=== PATIENT | female | born 1935 | race Caucasian/White ===

== ENCOUNTER → 2017-05-28 | Outpatient (CLI) | payer MEDICARE, OTHER ==
[~2017-05-28] MED LIST: ASPI81EC; ATOR10; CALGLU500; LORA1 PO; MECL25 PO; MULVITMINF; RXLORA1 PO
[2017-05-28 18:24] LABS: BASOPHILS ABSOLUTE AUTO 0.07 K/mm3 (0.00-0.23); BASOPHILS PERCENT AUTO 1 % (0-2); EOSINOPHILS PERCENT AUTO 5 % (0-6); Hematocrit 42.1 % (33.0-51.0); Hemoglobin 13.6 g/dL (11.5-16.0); IMMATURE GRAN ABSOLUTE AUTO 0.01 K/mm3 (0.00-0.10); IMMATURE GRAN PERCENT AUTO 0 % (0-1); LYMPHOCYTES ABSOLUTE AUTO 1.48 K/mm3 (0.84-5.20); LYMPHOCYTES PERCENT AUTO 22 % (21-46); MONOCYTES ABSOLUTE AUTO 0.69 K/mm3 (0.16-1.47); MONOCYTES PERCENT AUTO 10 % (4-13); Mean Corpuscular HGB 31.8 pg (26.0-34.0); Mean Corpuscular HGB Conc 32.3 g/dL (31.5-36.5); Mean Corpuscular Volume 98 fL (80-100); Mean Platelet Volume 11.9 fL (9.1-12.4); NEUTROPHILS ABSOLUTE AUTO 4.17 K/mm3 (1.96-9.15); NEUTROPHILS PERCENT AUTO 62 % (41-73); Platelet Count 214 K/mm3 (150-400); RDW Coefficient Variation 12.9 % (11.7-14.2); RDW Standard Deviation 46.4 fL (35.1-46.3); Red Blood Cell Count 4.28 M/mm3 (3.80-5.20); White Blood Cell Count 6.72 K/mm3 (4.00-11.30)
[2017-05-28 19:51] LABS: Alanine Aminotransfer (ALT/SGP 20 U/L (12-78); Albumin, Blood 3.3 g/dL (3.4-5.0); Albumin/Globulin Ratio 0.9 (0.8-1.8); Alk Phos 51 U/L (50-136); Anion Gap 8 mmol/L (6-16); Aspartate Aminotrans (AST/SGOT 18 U/L (12-37); Bilirubin, Total 0.5 mg/dL (0.1-1.0); Blood Urea Nitrogen 20 mg/dL (8-24); CHOL/HDL RATIO 2.3; CO2, Blood 25 mmol/L (21-32); Calcium, Blood 8.9 mg/dL (8.5-10.1); Chloride, Blood 108 mmol/L (98-108); Cholesterol 174 mg/dL (50-200); Globulin, Blood 3.7 g/dL (2.2-4.0); Glucose, Blood 84 mg/dL (70-99); HDL Cholesterol 75 mg/dL (>39); LDL/HDL RATIO 1.1; Low Density Lipoprotein Chol 82 mg/dL (0-110); Potassium, Blood 4.5 mmol/L (3.5-5.5); Sodium, Blood 141 mmol/L (136-145); Triglycerides 83 mg/dL (30-160); Very Low Density Lipoprot Chol 16 mg/dL (6-32)
[2017-05-28 19:59] LABS: Bun/Creatinine Ratio 22.6 (12.0-20.0); Creatinine, Blood 0.89 mg/dL (0.40-1.00); Glomerular Filtration Rate >60 (60-)
== END | disposition home or self-care (01) ==
LOC: LAB 18:04
PROVIDERS: Nurse Practitioner Adult Health
DX: E78.5 Hyperlipidemia, unspecified (principal)
CPT/HCPCS: 80053; 80061; 84439; 84443; 85025

== ENCOUNTER → 2018-03-16 | Outpatient (CLI) | payer MEDICARE, OTHER ==
[2018-03-16 18:04] LABS: Bilirubin, Urine Neg (Neg); Blood, Urine Neg (Neg); Glucose Qualitative, Urine Neg (Neg); Ketones, Urine Neg (Neg); Leukocyte Esterase, Urine 1+ (Neg); Nitrite, Urine Neg (Neg); Protein, Urine 3+ (Neg); Specific Gravity, Urine 1.015 (1.003-1.022); Urobilinogen, Urine NORM (Normal)
[2018-03-16 18:27] LABS: Appearance, Urine Clear (Clear); Color, Urine Yellow (P-Yellow)
[2018-03-16 18:28] LABS: Bacteria Not Seen /hpf; Red Blood Cells, Urine Not Seen /hpf (0-2); Renal Epithelial Rare /hpf (0-Rare); Squamous Epithelial Cells Rare /hpf (Few)
== END ==
LOC: LAB SHORT 17:36 → LAB 17:36
PROVIDERS: Nurse Practitioner Family
DX: R80.9 Proteinuria, unspecified (principal)
CPT/HCPCS: 81001

== ENCOUNTER 2018-05-25 11:57 | Inpatient (IN) | payer MEDICARE, OTHER ==
[~2018-05-25] VITALS: Ht 165.1 cm; Wt 54.4 kg
[2018-05-25 13:36] LABS: BASOPHILS ABSOLUTE AUTO 0.03 K/mm3 (0.00-0.23); BASOPHILS PERCENT AUTO 0 % (0-2); EOSINOPHILS PERCENT AUTO 0 % (0-6); Hematocrit 39.7 % (33.0-51.0); Hemoglobin 12.6 g/dL (11.5-16.0); IMMATURE GRAN ABSOLUTE AUTO 0.25 K/mm3 (0.00-0.10); IMMATURE GRAN PERCENT AUTO 2 % (0-1); LYMPHOCYTES ABSOLUTE AUTO 0.78 K/mm3 (0.84-5.20); LYMPHOCYTES PERCENT AUTO 5 % (21-46); MONOCYTES ABSOLUTE AUTO 1.05 K/mm3 (0.16-1.47); MONOCYTES PERCENT AUTO 7 % (4-13); Mean Corpuscular HGB 29.9 pg (26.0-34.0); Mean Corpuscular HGB Conc 31.7 g/dL (31.5-36.5); Mean Corpuscular Volume 94 fL (80-100); Mean Platelet Volume 10.7 fL (9.1-12.4); NEUTROPHILS ABSOLUTE AUTO 13.36 K/mm3 (1.96-9.15); NEUTROPHILS PERCENT AUTO 86 % (41-73); NRBC ABSOLUTE 0.02 K/mm3 (0.00-0.02); NRBC Auto 0.1 /100 WBC (0.0-0.2); Platelet Count 287 K/mm3 (150-400); RDW Coefficient Variation 13.5 % (11.7-14.2); RDW Standard Deviation 45.7 fL (35.1-46.3); Red Blood Cell Count 4.22 M/mm3 (3.80-5.20); White Blood Cell Count 15.47 K/mm3 (4.00-11.30)
[2018-05-25 13:52] LABS: Alanine Aminotransfer (ALT/SGP 65 U/L (12-78); Albumin, Blood 2.3 g/dL (3.4-5.0); Albumin/Globulin Ratio 0.5 (0.8-1.8); Alk Phos 58 U/L (50-136); Anion Gap 15 mmol/L (6-16); Aspartate Aminotrans (AST/SGOT 137 U/L (12-37); Bilirubin, Total 0.6 mg/dL (0.1-1.0); Blood Urea Nitrogen 39 mg/dL (8-24); Bun/Creatinine Ratio 46.3 (12.0-20.0); CO2, Blood 23 mmol/L (21-32); Calcium, Blood 9.2 mg/dL (8.5-10.1); Chloride, Blood 108 mmol/L (98-108); Creatinine, Blood 0.84 mg/dL (0.40-1.00); Globulin, Blood 4.7 g/dL (2.2-4.0); Glomerular Filtration Rate >60 (60-); Glucose, Blood 69 mg/dL (70-99); Potassium, Blood 4.1 mmol/L (3.5-5.5); Sodium, Blood 146 mmol/L (136-145)
[2018-05-25 13:59] LABS: Influenza A Negative (NEGATIVE); Influenza B Negative (NEGATIVE)
[2018-05-25 15:14] LABS: Creatine Kinase MB 31.5 ng/mL (0.0-3.6)
[2018-05-25 15:22] LABS: Creatine Kinase MB Index 2.9 (0.0-4.0)
[2018-05-25 16:13] LABS: Source, Urine Catheter
[2018-05-25 16:22] LABS: Bilirubin, Urine Neg (Neg); Blood, Urine 2+ (Neg); Glucose Qualitative, Urine Neg (Neg); Ketones, Urine 3+ (Neg); Leukocyte Esterase, Urine Neg (Neg); Nitrite, Urine Pos (Neg); Protein, Urine 2+ (Neg); Urobilinogen, Urine NORM (Normal)
[2018-05-25 16:36] LABS: Appearance, Urine Clear (Clear); Color, Urine Yellow (P-Yellow)
[2018-05-25 16:38] LABS: White Blood Cells, Urine 0-2 /hpf (0-5)
[2018-05-25 16:39] LABS: Bacteria Many /hpf; Squamous Epithelial Cells Not Seen /hpf (Few)
[2018-05-25 18:57] LABS: LDL/HDL RATIO 1.6
[2018-05-25 18:58] LABS: CHOL/HDL RATIO 3.2; Cholesterol 156 mg/dL (50-200); HDL Cholesterol 49 mg/dL (>39); Low Density Lipoprotein Chol 80 mg/dL (0-110); Triglycerides 134 mg/dL (30-160); Very Low Density Lipoprot Chol 26 mg/dL (6-32)
[2018-05-25] MEDS ORDERED: SIMV40 PO (21:04)
[2018-05-25] MEDS ORDERED: ELIQUIS5 MG PO (21:05)
[2018-05-26 04:09] LABS: BASOPHILS ABSOLUTE AUTO 0.01 K/mm3 (0.00-0.23); BASOPHILS PERCENT AUTO 0 % (0-2); EOSINOPHILS ABSOLUTE AUTO 0.01 K/mm3 (0.00-0.68); EOSINOPHILS PERCENT AUTO 0 % (0-6); Hematocrit 34.7 % (33.0-51.0); Hemoglobin 11.3 g/dL (11.5-16.0); IMMATURE GRAN PERCENT AUTO 2 % (0-1); LYMPHOCYTES ABSOLUTE AUTO 0.69 K/mm3 (0.84-5.20); LYMPHOCYTES PERCENT AUTO 5 % (21-46); MONOCYTES ABSOLUTE AUTO 1.07 K/mm3 (0.16-1.47); MONOCYTES PERCENT AUTO 8 % (4-13); Mean Corpuscular HGB 29.7 pg (26.0-34.0); Mean Corpuscular HGB Conc 32.6 g/dL (31.5-36.5); Mean Corpuscular Volume 91 fL (80-100); Mean Platelet Volume 10.8 fL (9.1-12.4); NEUTROPHILS ABSOLUTE AUTO 11.73 K/mm3 (1.96-9.15); NEUTROPHILS PERCENT AUTO 86 % (41-73); Platelet Count 221 K/mm3 (150-400); RDW Coefficient Variation 13.3 % (11.7-14.2); RDW Standard Deviation 44.2 fL (35.1-46.3); White Blood Cell Count 13.71 K/mm3 (4.00-11.30)
[2018-05-26 04:24] LABS: Bun/Creatinine Ratio 48.7 (12.0-20.0); Creatinine, Blood 0.95 mg/dL (0.40-1.00); Potassium, Blood 3.7 mmol/L (3.5-5.5)
--- NOTE | 2018-05-26 16:43 | NUR ---
SHIFT SUMMARY NEW ER ADMIT THIS SHIFT WITH UTI/R FOOT GANGRENE. PT IS ALERT AND ORIENTED AND PLEASANT. PT HAS HX OF DAILY ALCOHOL USE--CIWA PROTOCOL IN PLACE AND STABLE AT SCORE OF 3. PT RECEIVING IVF PER ORDERS AND ABX SCHEDULED. PT PLACED ON 3L VIA NC TO MAINTAIN SATS >90%--PT DESATS WHILE SLEEPING. ENCOURAGING DEEP BREATHING. R FOOT PAINFUL AND RECEIVING 1 NORCO--CONSULT PLACED TO DR. CATHERINE. PT HAS GOOD BED MOBILITY AND USING BED WHITNEY TO VOID. SON AT BEDSIDE. CALL LIGHT WITHIN REACH.
[2018-05-27 05:11] LABS: BASOPHILS ABSOLUTE AUTO 0.01 K/mm3 (0.00-0.23); BASOPHILS PERCENT AUTO 0 % (0-2); EOSINOPHILS ABSOLUTE AUTO 0.02 K/mm3 (0.00-0.68); EOSINOPHILS PERCENT AUTO 0 % (0-6); Hemoglobin 10.7 g/dL (11.5-16.0); IMMATURE GRAN ABSOLUTE AUTO 0.19 K/mm3 (0.00-0.10); IMMATURE GRAN PERCENT AUTO 1 % (0-1); LYMPHOCYTES ABSOLUTE AUTO 0.57 K/mm3 (0.84-5.20); LYMPHOCYTES PERCENT AUTO 4 % (21-46); MONOCYTES ABSOLUTE AUTO 1.04 K/mm3 (0.16-1.47); MONOCYTES PERCENT AUTO 8 % (4-13); Mean Corpuscular HGB 29.3 pg (26.0-34.0); Mean Corpuscular HGB Conc 31.5 g/dL (31.5-36.5); Mean Corpuscular Volume 93 fL (80-100); Mean Platelet Volume 10.8 fL (9.1-12.4); NEUTROPHILS PERCENT AUTO 86 % (41-73); Platelet Count 215 K/mm3 (150-400); RDW Coefficient Variation 13.6 % (11.7-14.2); RDW Standard Deviation 46.3 fL (35.1-46.3); Red Blood Cell Count 3.65 M/mm3 (3.80-5.20); White Blood Cell Count 13.33 K/mm3 (4.00-11.30)
[2018-05-27 05:47] LABS: Albumin, Blood 1.8 g/dL (3.4-5.0); Anion Gap 8 mmol/L (6-16); Blood Urea Nitrogen 38 mg/dL (8-24); Bun/Creatinine Ratio 48.3 (12.0-20.0); CO2, Blood 25 mmol/L (21-32); Calcium, Blood 8.5 mg/dL (8.5-10.1); Chloride, Blood 116 mmol/L (98-108); Creatinine, Blood 0.79 mg/dL (0.40-1.00); Glomerular Filtration Rate >60 (60-); Glucose, Blood 70 mg/dL (70-99); Phosphorus, Blood 2.6 mg/dL (2.5-4.9); Potassium, Blood 3.7 mmol/L (3.5-5.5); Sodium, Blood 149 mmol/L (136-145)
--- NOTE | 2018-05-27 13:01 | NUR ---
pt to slabber
--- NOTE | 2018-05-27 13:39 | NUR ---
CALLED DR ITERNEY AND NOTIFIED URINARY CULTURE POSITIIVE FOR PSEUDOMONAS
--- NOTE | 2018-05-27 16:00 | NUR ---
Patient arrived via gurney from dental laboratory worker. Dr Gomez at bedside to give report. Left sheath site C/D/I and opsite dressing and pulled in heart center. Right groin site has 6Fr. sheat in place with clear opsite dressing, no oozing or hematoma. Dr Gomez stated to start TPA in 2-3 hours as order states in to sheath line and see nurse notifies for exceptions and treatments. She is quiet but alert and oriented, family outside waiting. She is a-fib low 100's and systolic low 100's with MAP >65. Doppler pulses on right foot, sites marked.
[2018-05-27 16:07] LABS: Hemoglobin 10.3 g/dL (11.5-16.0)
[2018-05-27] MEDS ORDERED: FISH OIL 1,0001 EAC1 PO (16:36)
--- NOTE | 2018-05-27 17:50 | NUR ---
Right sheath back flowed with blood and flushed and Altaplase gtt at 0.5mg(10ml/hr) started and will start heparin gtt shortly per order. Patient stable , still doppler pulses. Right and left groinn site C/D/I no bleeding or hematomas.
--- NOTE | 2018-05-27 18:56 | NUR ---
HEPARIN GTT STARTED AT 300 UNIT/HR OT 6ML PER PHARMACY. NO BLEEDING AT ANY SITE AND RIGHT FOOT STILL DOPPLER. SEE TX AND NURSE NOTIFY FOR DIRECTIONS.
--- NOTE | 2018-05-27 19:30 | NUR ---
ASSUMED PT CARE, BEDSIDE REPORT & PT STATUS OF SITES & GTTS VERIFIED & CONFIRMED. PT IS ALERT, DENIES DISCOMFORT. PT GESTURES & DEFERS TO HER SON'S WHO ARE BOTH PRESENT AT BEDSIDE. R ARTERIAL SHEATH SITE IS CLEAR, SECURELY DRESSED & W TPA INFUSING 0.5MG/HR. NO BLEEDING OR HEMATOMA. HEPARIN INFUSING PERIPHERALLY 300 UNITS/HR. L FEMORAL SITE CONT SOFT DRSG CDI. L FOOT W 1+ PULSE PALP. FOOT W DK PURPLE AREA ON GREAT TOE & EXTENDS SL TO OTHER TOE. NO OPEN WOUND. R FOOT W APPROX 5CM AREA OF BLISTERED SKIN, NO OPEN WOUND. MULTIPLE TOES ARE PURPLE. FOOT IS SL COOL, PULSE BY DOPPLER ONLY. PLAN TO PLACE [facility] CATH TO DECREASE RISK FOR BLEEDING W HIP FLEXION, & TO MONITOR I&O. WILL PLACE SECOND IV & START MAINTAINENCE FLUIDS. PT INSTRUCTED RE KEEPING R LEG STRAIGHT. CALL LIGHT IN REACH.
[2018-05-27 21:26] LABS: Source, Urine Catheter
[2018-05-27 21:30] LABS: Appearance, Urine Hazy (Clear); Bilirubin, Urine Neg (Neg); Blood, Urine 2+ (Neg); Color, Urine Yellow (P-Yellow); Glucose Qualitative, Urine Neg (Neg); Ketones, Urine 2+ (Neg); Leukocyte Esterase, Urine 1+ (Neg); Nitrite, Urine Pos (Neg); Protein, Urine 2+ (Neg); Urobilinogen, Urine NORM (Normal)
--- NOTE | 2018-05-27 21:30 | NUR ---
[facility] CATH PLACED WO DIFFICULTY & SPEC SENT PER PROTOCOL. IMMED RETURN OF 250CC DAMARIS URINE. SECOND IV STARTED BY Renea LCAIRE RN. CONT AFIB W RATE ABOUT 110.
[2018-05-27 21:45] LABS: Bacteria Few /hpf; Mucus Light (0-Heavy); Red Blood Cells, Urine Rare /hpf (0-2); Squamous Epithelial Cells Not Seen /hpf (Few)
[2018-05-27 21:55] LABS: Hematocrit 32.2 % (33.0-51.0)
--- NOTE | 2018-05-28 | NUR ---
R GROIN CONT SOFT & WO BLEEDING & TPA INFUSING. PULSE CONT BY DOPPLER. SBP 80'S, CONT TO MONITOR. PT IS COOPERATIVE, DENIES PAIN. STATES NUMBNESS & TINGLING CONT "NO WORSE THAN BEFORE".
[2018-05-28 04:48] LABS: Hematocrit 31.5 % (33.0-51.0)
[2018-05-28 04:49] LABS: BASOPHILS ABSOLUTE AUTO 0.02 K/mm3 (0.00-0.23); BASOPHILS PERCENT AUTO 0 % (0-2); EOSINOPHILS ABSOLUTE AUTO 0.01 K/mm3 (0.00-0.68); EOSINOPHILS PERCENT AUTO 0 % (0-6); Hematocrit 31.6 % (33.0-51.0); Hemoglobin 10.1 g/dL (11.5-16.0); IMMATURE GRAN ABSOLUTE AUTO 0.13 K/mm3 (0.00-0.10); IMMATURE GRAN PERCENT AUTO 1 % (0-1); LYMPHOCYTES ABSOLUTE AUTO 0.53 K/mm3 (0.84-5.20); LYMPHOCYTES PERCENT AUTO 4 % (21-46); MONOCYTES ABSOLUTE AUTO 1.09 K/mm3 (0.16-1.47); MONOCYTES PERCENT AUTO 8 % (4-13); Mean Corpuscular HGB 30.4 pg (26.0-34.0); Mean Corpuscular Volume 95 fL (80-100); NEUTROPHILS ABSOLUTE AUTO 12.52 K/mm3 (1.96-9.15); NEUTROPHILS PERCENT AUTO 88 % (41-73); NRBC ABSOLUTE 0.02 K/mm3 (0.00-0.02); NRBC Auto 0.1 /100 WBC (0.0-0.2); Platelet Count 217 K/mm3 (150-400); Red Blood Cell Count 3.32 M/mm3 (3.80-5.20)
[2018-05-28 05:05] LABS: Anion Gap 9 mmol/L (6-16); Blood Urea Nitrogen 33 mg/dL (8-24); Bun/Creatinine Ratio 46.2 (12.0-20.0); CO2, Blood 21 mmol/L (21-32); Calcium, Blood 8.2 mg/dL (8.5-10.1); Chloride, Blood 119 mmol/L (98-108); Creatinine, Blood 0.72 mg/dL (0.40-1.00); Glomerular Filtration Rate >60 (60-); Glucose, Blood 64 mg/dL (70-99); Potassium, Blood 4.1 mmol/L (3.5-5.5); Sodium, Blood 149 mmol/L (136-145)
--- NOTE | 2018-05-28 06:00 | NUR ---
THIS AM R FOOT W IMPROVED COLOR, & FAINT PULSE PALPATED MANUALLY. BOTH R & L GROIN SITES CONT SOFT WO BLEEDING OR HEMATOMA. WILL CONT TPA & REVIEW ORDERS W ONCOMING NURSE. PT DOZES PERIODICALLY, WATCHING TV & FLIPPING THROUGH CHANNELS, NO WITHDRAWAL SYMPTOMS OBSERVED AT THIS TIME.
--- NOTE | 2018-05-28 07:15 | NUR ---
ASSUMING CARE OF PT: PT IS ALERT AND ORIENTED. PT MUMBLES HER WORDS A LITTLE DIFFICULT TO UNDERSTAND AT TIMES. PT HAS AN ARTERIAL SHEATH TO HER RIGHT GROIN WITH TPA INFUSING TO IT AT 0.5MG/HR ORDERED. PT HAS HEPARIN DRIP INFUSING TO HER R PERIPHERAL IV LINE @ 300 UNITS/HR ORDERED. R GROIN ACCESS SITE IS SOFT TO TOUCH, NO HEMATOMA OR BRUISING NOTED. R FOOT IS WARM TO TOUCH. QUESTIONABLE PALPABLE PULSE TO THE FOOT BUT PRESENT WHEN DOPPLED. PT STATES R FOOT FEELS TINGLY AND LARGE BLISTER IS NOTED. BLACK TOES ARE NOTED WELL WITH CAP REFILL > 3SECS.
--- NOTE | 2018-05-28 08:15 | NUR ---
SYSTOLIC BLOOD PRESSURE IN THE 70s IN [address] BANEGAS WAS NOTIFIED. ORDERS RECEIVED TO GIVE PT 500ML NS BOLUS.
--- NOTE | 2018-05-28 08:30 | NUR ---
PT'S SON ARMIDA AT BEDSIDE. UPDATED HIM OF PT'S STATUS. CALLED DR. CATHERINE REGARDING TREATMENT PLAN. LEFT A MESSAGE TO HIS CELLPHONE
[2018-05-28 09:46] LABS: Hemoglobin 9.7 g/dL (11.5-16.0)
--- NOTE | 2018-05-28 10:17 | NUR ---
0914-DR. CATHERINE CALLED BACK. INFORMED HIM OF PT'S STATUS. HE STATED TO CONTINUE TPA UNTIL INFUSION IS DONE THEN REPLACE IT WITH HEPARIN DRIP AFTER FLUSHING WITH 10ML OF NS. 1017-PT IS SLEEPING AT THIS TIME. DENIES ANY BACK PAIN AT THS TIME.
--- NOTE | 2018-05-28 11:51 | NUR ---
STILL ON TPA TO THE R GROIN ART SHEATH. SITE STILL IS SOFT TO TOUCH, NO HEMATOMA OR BRUISING NOTED. GAVE PT ICE WATER TO DRINK. PT REFUSES TO EAT. REMINDED PT TO KEEP R LEG STRAIGHT. PT'S SON ARMIDA IS COMING IN AND OUT OF PT'S ROOM.
--- NOTE | 2018-05-28 12:56 | NUR ---
TPA INFUSION DONE. REPLACED TPA INUFSION WITH HEPARIN INFUSION @ 500UNITS/HR ORDERED BY DR. CATHERINE. DR. PATELTRATE AT BEDSIDE AT THIS TIME.
[2018-05-28 15:32] LABS: Hematocrit 28.8 % (33.0-51.0); Hemoglobin 8.8 g/dL (11.5-16.0)
--- NOTE | 2018-05-28 17:05 | NUR ---
1630-PT BACK IN THE ROOM. ART SHEATH TO Jet DIAZ HAS BEEN PULLED FROM THE JEWELLERY DESIGNER AND WAS REPLACED WITH ANGIO SEAL. SLIGHT HEMATOMA NOTED OTHER THAN THAT R GROIN IS STABLE WITH PUNCTURE HURTADO NOTED TO THE SITE. PULSES ARE STILL PALPABLE. 1650-SPOKE WITH DR. SIMS FOR CARDIOLOGY CONSULT. UPDATED HER OF PT'S STATUS. EKG WAS DONE AT THIS TIME.
--- NOTE | 2018-05-28 17:10 | NUR ---
DR. BANEGAS WAS NOTIFIED REGARDING PT'S LATEST H&H RESULT, NO ORDERS RECEIVED. PAGED DR. CATHERINE AT [phone] FOR POST PROCEDURE ORDERS. HE HAS NOT CALLED BACK YET.
--- NOTE | 2018-05-28 19:15 | NUR ---
ASSUMED CARE ASSUMED CARE OF PATIENT. REMAINS INTUBATED- AC 16, TV 400, PEEP 5, FIO2 30%. RESP RATE MID-20s TO 30s. 8.0 ETT 26CM @ LIP. SEDATED WITH PROPOFOL @ 20MCG/KG/MIN. PT OPENS EYES SLIGHTLY TO VERBAL STIMULI. SQUEEZES HANDS TO COMMAND. DAVID, 2MM. BILATERAL SOFT WRIST RESTRAINTS IN PLACE TO PREVENT SELF-EXTUBATION. MONITOR SHOWS AFIB, RATE 120-140s. BP 97/77 WITH LEVOPHED @ 10MCG/MIN. VASOPRESSIN INFUSING @ 0.04UNITS/MIN PER ORDER. PROTONIX GTT INFUSING @ 8MG/HR (10CC/HR) PER ORDER. NS INFUSING @ 75CC/HR PER ORDER. OG TO LIS WITH COFFEE GROUND, DARK BROWN DRAINAGE. BLACKWELL PATENT WITH PINKISH-ORANGE URINE. SOME SEDIMENT NOTED IN TUBING. PAS TO BLE. SEE SHIFT ASSESSMENT FOR FULL ASSESSMENT.
--- NOTE | 2018-05-28 19:15 | NUR ---
ASSUMED CARE ASSUMED CARE OF PATIENT. AWAKE AND ALERT. ORIENTED X 3. COOPERATIVE AND CALM. FAMILY AT BEDSIDE. DENIES C/O PAIN OR DISCOMFORT AT THIS TIME. BILATERAL GROIN SITES WITH DRSGS C/D/I. SITES ARE SOFT AND WITHOUT HEMATOMA. BILATERAL DP PULSES 1+, BILATERAL PT PULSES WITH DOPPLER. STATES NUMBNESS IN BOTH FEET. RIGHT MID-FOOT TO TOES ARE PURPLISH BLACK, WARM TO TOUCH. LARGE FLUID FILLLED BLISTER NOTED TO TOP OF RIGHT FOOT. LEFT TOES ARE DARK PURPLISH. PICS IN CHART. NS INFUSING @ 75CC/HR PER ORDER. MONITOR SHOWS AFIB, RATE 100-120s. SBP 80-90s. REMAINS ON RA- SATS 92-93%. RESPIRATIONS EVEN AND UNLABORED. SEE SHIFT ASSESSMENT FOR FULL ASSESSMENT.
--- NOTE | 2018-05-28 19:33 | NUR ---
1849-DR. CATHERINE CAME BY TO SEE PATIENT. HE WAS ABLE TO TALK TO PT'S 2 SONS. 1914-REPORT GIVEN TO ESME GARCIA.
--- NOTE | 2018-05-28 19:41 | NUR ---
SHIFT SUMMARY: PT WENT TO THE [facility] THIS AFTERNOON FOR ANGIOGRAPHY. PT CAME BACK WITHOUT A SHEATH. R GROIN ACCESS SITE HAS ANGIOSEAL CLOSURE WHICH IS SOFT TO TOUCH, STABLE, NO HEMATOMA AND BRUISING NOTED. PUNCTURE SITES NOTED TO THE R GROIN WHICH IS ALSO STABLE. LEFT GROIN ACCESS SITE FROM YESTERDAY IS ALSO STABLE. PALPABLE PULSE TO THE R/L DP. DOPPLER R/L POST-TIBS. DENIES PAIN MEDICATION. PT STATES NUMBNESS AND TINGLING TO R FOOT. STILL HAS BLISTER AND BLACKISH COLOR. DR. CATHERINE CAME BY TO SEE PT AND SONS. HE TALKED TO THEM REGARDING TREATMENT PLAN. WILL BE STARTING HEPARIN DRIP ORDERED. DR. MANNING IS ASKED TO CONSULT FOR THIS PATIENT.
[2018-05-28 21:01] LABS: Hematocrit 30.1 % (33.0-51.0); Hemoglobin 9.4 g/dL (11.5-16.0)
--- NOTE | 2018-05-28 22:16 | NUR ---
HEPARIN GTT HEPARIN 3900 UNIT IV BOLUS GIVEN PER PHARMACY ORDER AND HEPARIN GTT RESTARTED @ 13UNITS/KG/HR (13.5CC/HR).
[2018-05-29 03:48] LABS: Hematocrit 30.5 % (33.0-51.0); Hemoglobin 9.4 g/dL (11.5-16.0); Mean Corpuscular HGB 29.7 pg (26.0-34.0); Mean Corpuscular HGB Conc 30.8 g/dL (31.5-36.5); Mean Corpuscular Volume 97 fL (80-100); Mean Platelet Volume 11.2 fL (9.1-12.4); Platelet Count 200 K/mm3 (150-400); RDW Standard Deviation 49.4 fL (35.1-46.3); Red Blood Cell Count 3.16 M/mm3 (3.80-5.20); White Blood Cell Count 14.69 K/mm3 (4.00-11.30)
[2018-05-29 04:00] LABS: Hematocrit 30.4 % (33.0-51.0); Hemoglobin 9.4 g/dL (11.5-16.0)
[2018-05-29 04:02] LABS: Albumin, Blood 1.5 g/dL (3.4-5.0); Anion Gap 8 mmol/L (6-16); Blood Urea Nitrogen 29 mg/dL (8-24); Bun/Creatinine Ratio 46.8 (12.0-20.0); CO2, Blood 23 mmol/L (21-32); Calcium, Blood 7.9 mg/dL (8.5-10.1); Chloride, Blood 120 mmol/L (98-108); Creatinine, Blood 0.62 mg/dL (0.40-1.00); Glomerular Filtration Rate >60 (60-); Glucose, Blood 101 mg/dL (70-99); Potassium, Blood 3.8 mmol/L (3.5-5.5); Sodium, Blood 151 mmol/L (136-145)
[2018-05-29 04:17] LABS: BAND PERCENT MAN 10 % (0-8); BASOPHILS PERCENT MAN 0 % (0-2); EOSINOPHILS PERCENT MAN 0 % (0-6); LYMPHOCYTES ABSOLUTE MAN 0.44 K/mm3 (0.84-5.20); LYMPHOCYTES PERCENT MAN 3 % (21-46); MONOCYTES ABSOLUTE MAN 1.32 K/mm3 (0.16-1.47); MONOCYTES PERCENT MAN 9 % (4-13); MYELOCYTE ABSOLUTE MAN 0.14 K/mm3 (0.00-0.00); MYELOCYTE PERCENT MAN 1 % (0-0); NEUTROPHILS ABSOLUTE MAN 12.78 K/mm3 (1.96-9.15); SEG NEUTROPHILS PERCENT MAN 77 % (41-73); TOTAL CELLS COUNTED 100
--- NOTE | 2018-05-29 05:43 | NUR ---
HEPARIN GTT HEPARIN GTT DECREASED TO 12.5UNITS/KG/HR (13CC/HR) PER PHARMACY ORDER. NEXT PTT @ 1130.
--- NOTE | 2018-05-29 06:38 | NUR ---
SHIFT SUMMARY NO ACUTE CHANGES DURING NOC. SLEPT WHEN UNDISTURBED. C/O MILD PAIN IN RLE, BUT DENIES NEED FOR PAIN MEDS. RIGHT FOOT IS TENDER AND SENSITIVE TO TOUCH. BLISTER REMAINS INTACT TO TOP OF RIGHT FOOT. BILATERAL GROIN SITES REMAIN SOFT AND WITHOUT HEMATOMA. DRSGS ARE C/D/I. BILATERAL DP PULSES ARE 2+ NOW. BILATERAL PT PULSES FOUND WITH DOPPLER. REMAINS IN AFIB, RATE 110-120s. SBP 80S-100s. TMAX 99.3F. REMAINS ON RA. DENIES DYSPNEA OR SOB, BUT OCCASIONALLY APPEARS TO BE SOB. TOLERATING CARDIAC DIET. BL[facility]WELL PATENT AND DRAINING CLOUDY YELLOW URINE- 400CC TOTAL. HEPARIN GTT CONTINUES @ 12.5UNITS/KG/HR. WILL REPORT TO DAY SHIFT RN WHEN AVAILABLE.
--- NOTE | 2018-05-29 07:15 | NUR ---
PT IS AWAKE, ALERT AND ORIENTED. DENIES PAIN. PT SEEMED TO HAVE SHORTNESS OF BREATH. O2 SATURAION 95% ON ROOM AIR. PT DENIES SHORTNESS OF BREATH WHEN ASKED. PT STATED "I'M FINE". R/L GROIN ACCESS SITES ARE STABLE. R FOOT STILL HAS BLISTER. COLOR HAS SLIGHTLY IMPROVED FROM YESTERDAY.
--- NOTE | 2018-05-29 10:05 | NUR ---
PT SEEN BY DR. BANEGAS. INFORMED HIM REGARDING DIMINISHED BREATH SOUNDS TO THE LEFT SIDE. PT IS MORE COARSE TO HER R SIDE AND CRACKLES IN THE BASES. MORE WET SOUNDING COUGH TODAY THAN YESTERDAY. INFORMED HIM OF PT'S NA LEVEL WELL. ORDERS RECEIVED.
[2018-05-29 10:49] LABS: Hemoglobin 9.4 g/dL (11.5-16.0)
--- NOTE | 2018-05-29 11:17 | NUR ---
DR. BANEGAS NOTIFIED THAT CHEST X-RAY WAS DONE AND IF HE CAN LOOK AT THE XRAY.
--- NOTE | 2018-05-29 12:31 | NUR ---
DR. BANEGAS IS TALKING TO PT'S SONS AT THIS TIME REGARDING PT'S STATUS.
--- NOTE | 2018-05-29 14:16 | NUR ---
Initial Visit: Consult received for advanced care planning. Pt is sitting up in bed. She has rapid, shallow respirations. She is alert, oriented, appears anxious. Reviewed code status and POLST forms. She allows me to assist with form and she signs it. Limited code with DNR/DNI. She is wearing a DNR bracelet. Sons come in and are speaking with Dr. Collazo. They are suspecting malignancy in lung after abnormal chest xray. Introduced myself to sons. They are willing to help, maybe asking for placment if patient will not be able to take care of herself. Card and Considering Comfort Care booklet given. Son understands that I am sharing this so that he knows options. He accepts it with thanks. Will remain available.
--- NOTE | 2018-05-29 15:51 | NUR ---
PT WAS SEEN BY DR. MOYER AROUND 1500 TODAY. SHE WAS ABLE TO TALK TO PATIENT'S SON REGARDING CHEST X-RAY RESULT AND PLAN OF CARE. PT HAD BED CPT 2X AND HAS BEEN USING HER FLUTTER VALVE. PT IS HAVING DIFFICULTY EXPECTORATING PHLEGM.
[2018-05-29 15:56] LABS: Hematocrit 27.8 % (33.0-51.0); Hemoglobin 8.8 g/dL (11.5-16.0)
--- NOTE | 2018-05-29 17:10 | NUR ---
ATTEMPTED TO CALL FOR REPORT. RN NOT READY FOR REPORT YET. ROOM NOT CLEAN WELL PER HOME SERVICE ADVISOR.
--- NOTE | 2018-05-29 17:37 | NUR ---
SHIFT SUMMARY: PT IS ALERT AND ORIENTED. PT WAS STARTED ON 2LPM NC DESPITE O2 SATURATION >90% DUE TO PT'S LABORED BREATHING. DR. MOYER IS AWARE OF O2 BEING STARTED. PT WAS ENCOURAGED TO USE FLUTTER VALVE WHICH PT WAS DELIGENT TO USE IT. BED CPT WAS DONE.
--- NOTE | 2018-05-29 18:28 | NUR ---
REPORT TO ESME [place]. PT WILL BE TRANSFERED TO ROOM PCU 5.
--- NOTE | 2018-05-29 18:59 | NUR ---
PT WAS TRANSFERED TO ROOM PCU 5.
[2018-05-29 22:29] LABS: Hemoglobin 9.1 g/dL (11.5-16.0)
[2018-05-30 03:39] LABS: Hematocrit 27.6 % (33.0-51.0); Hemoglobin 8.7 g/dL (11.5-16.0)
[2018-05-30 03:40] LABS: BASOPHILS ABSOLUTE AUTO 0.02 K/mm3 (0.00-0.23); BASOPHILS PERCENT AUTO 0 % (0-2); EOSINOPHILS ABSOLUTE AUTO 0.04 K/mm3 (0.00-0.68); EOSINOPHILS PERCENT AUTO 0 % (0-6); Hematocrit 27.8 % (33.0-51.0); Hemoglobin 8.8 g/dL (11.5-16.0); IMMATURE GRAN ABSOLUTE AUTO 0.43 K/mm3 (0.00-0.10); IMMATURE GRAN PERCENT AUTO 3 % (0-1); LYMPHOCYTES ABSOLUTE AUTO 0.64 K/mm3 (0.84-5.20); LYMPHOCYTES PERCENT AUTO 4 % (21-46); MONOCYTES ABSOLUTE AUTO 1.18 K/mm3 (0.16-1.47); MONOCYTES PERCENT AUTO 7 % (4-13); Mean Corpuscular HGB 29.9 pg (26.0-34.0); Mean Corpuscular HGB Conc 31.7 g/dL (31.5-36.5); Mean Corpuscular Volume 95 fL (80-100); Mean Platelet Volume 10.7 fL (9.1-12.4); NEUTROPHILS ABSOLUTE AUTO 14.53 K/mm3 (1.96-9.15); NEUTROPHILS PERCENT AUTO 86 % (41-73); NRBC ABSOLUTE 0.04 K/mm3 (0.00-0.02); NRBC Auto 0.2 /100 WBC (0.0-0.2); Platelet Count 172 K/mm3 (150-400); RDW Standard Deviation 48.2 fL (35.1-46.3); Red Blood Cell Count 2.94 M/mm3 (3.80-5.20); White Blood Cell Count 16.84 K/mm3 (4.00-11.30)
[2018-05-30 03:53] LABS: Anion Gap 6 mmol/L (6-16); Blood Urea Nitrogen 26 mg/dL (8-24); Bun/Creatinine Ratio 46.1 (12.0-20.0); CO2, Blood 23 mmol/L (21-32); Calcium, Blood 7.7 mg/dL (8.5-10.1); Chloride, Blood 116 mmol/L (98-108); Creatinine, Blood 0.56 mg/dL (0.40-1.00); Glomerular Filtration Rate >60 (60-); Glucose, Blood 96 mg/dL (70-99); Potassium, Blood 4.1 mmol/L (3.5-5.5); Sodium, Blood 145 mmol/L (136-145)
--- NOTE | 2018-05-30 06:34 | NUR ---
Rn summary: Patient is alert and oriented. Pt denies any needs or SOB. She has refused to be repositioned. Pt is very pleasant however. Patient with course upper Rhonchi with some auditory wheezes at times. Patient sats have remained stable during the night. Pt is on 4 liters via NC. Pt tolerated chest percussion by RT. Rt monitoring respiratory status also. Pt julito groin sites WNL. Rt foot elevated on a pillow, pulse present, toes black and lg fluid filled blister top of rt foot. Left foot with some blackening of toes. Pt denies pain, asked frequently. Vital signs have been stable, does have tachy respirations 22-28. Pt has had a moist cough, stronger after chest PT. Tele shows atrial fib rate 100-125. Heparin drip as per orders. Call light in reach.
--- NOTE | 2018-05-30 07:51 | NUR ---
05/30/18 0720 Heparin drip adjusted as per pharmacy orders to 14 u/kg/hr which was 14.6 ml an hour. Next Aptt due 1200 noon. Dosage change verified with Rahul Overton RN.
[2018-05-30 09:27] LABS: Hematocrit 30.1 % (33.0-51.0)
--- NOTE | 2018-05-30 13:50 | NUR ---
STUDENT OBTAINED PERMISSION TO GIVE CARE ON WEDNESDAY 05/31 BETWEEN THE HRS OF [phone]. PT GAVE STUDENT PERMISSION TO REVIEW MED RECORDS.
[2018-05-30 14:10] LABS: Hematocrit 29.7 % (33.0-51.0); Hemoglobin 9.4 g/dL (11.5-16.0)
--- NOTE | 2018-05-30 17:20 | NUR ---
SHIFT SUMMARY THE PATIENT PRESENT WITH LOW VITALS WNL, A&O TO SURROUNDINGS, AND WITH LUNGS THAT WERE CLEAR, BUT VERY DIMINISHED. THE PATIENT HAS REFUSED HER MEALS AND NOT EATEN ANYTHING. THE PATIENT CONTINUES ON A HEPARIN DRIP. THE PATIENT WAS 3.5 LITERS [address] HYDRATED AND [address], ISTRATE ORDERED 10 MG OF LASIX. THE PATIENT'S FAMILY HAS BEEN WITH THE PATIENT AND SPOKE WITH PALLATIVE CARE. THE PATIENT SLEEPS INBETWEEN VISTORS AND IS RESTING AT THIS TIME. WILL CONTINUE TO MONITOR.
[2018-05-30 21:42] LABS: Hematocrit 28.6 % (33.0-51.0); Hemoglobin 9.1 g/dL (11.5-16.0)
[2018-05-31 03:54] LABS: Hematocrit 28.4 % (33.0-51.0)
[2018-05-31 06:14] LABS: BASOPHILS ABSOLUTE AUTO 0.02 K/mm3 (0.00-0.23); BASOPHILS PERCENT AUTO 0 % (0-2); EOSINOPHILS ABSOLUTE AUTO 0.01 K/mm3 (0.00-0.68); EOSINOPHILS PERCENT AUTO 0 % (0-6); Hematocrit 27.1 % (33.0-51.0); Hemoglobin 8.6 g/dL (11.5-16.0); IMMATURE GRAN ABSOLUTE AUTO 0.44 K/mm3 (0.00-0.10); IMMATURE GRAN PERCENT AUTO 3 % (0-1); LYMPHOCYTES PERCENT AUTO 3 % (21-46); MONOCYTES ABSOLUTE AUTO 0.97 K/mm3 (0.16-1.47); MONOCYTES PERCENT AUTO 6 % (4-13); Mean Corpuscular HGB 29.4 pg (26.0-34.0); Mean Corpuscular HGB Conc 31.7 g/dL (31.5-36.5); Mean Corpuscular Volume 93 fL (80-100); Mean Platelet Volume 11.2 fL (9.1-12.4); NEUTROPHILS ABSOLUTE AUTO 14.83 K/mm3 (1.96-9.15); NEUTROPHILS PERCENT AUTO 88 % (41-73); NRBC ABSOLUTE 0.03 K/mm3 (0.00-0.02); NRBC Auto 0.2 /100 WBC (0.0-0.2); Platelet Count 175 K/mm3 (150-400); RDW Standard Deviation 47.1 fL (35.1-46.3); Red Blood Cell Count 2.93 M/mm3 (3.80-5.20); White Blood Cell Count 16.77 K/mm3 (4.00-11.30)
--- NOTE | 2018-05-31 06:39 | NUR ---
SHIFT SUMMARY PT ALERT AND ORIENTED. VS HAVE BEEN STABLE. 02 SATS >92% ON 2L NC. LS ARE CRACKLES THROUGHOUT. RIGHT GROIN SITE HAS SMALL HEMATOMA AND MINIMAL BRUISING. PT DENIES ANY TENDERNESS. LEFT GROIN SITE HAS NO SIGNS OR SYMPTOMS OF BLEEDING, HEMATOMA, OR BRUISING. HR HAS BEEN AFIB IN THE 120'S. HEPARIN GTT INF PER ORDERS. NO CHANGES SINCE INITIAL ASSESSMNET. PT HAS BEEN REPOSITIONED Q2H. ATTENDS DRY AT THIS TIME. WILL CONTINUE TO MONITOR AND REPORT TO ONCOMING RN. CALL LIGHT IN REACH.
--- NOTE | 2018-05-31 08:03 | NUR ---
REPOSITIONED PATIENT ON RIGHT SIDE. PT REFUSED BREAKFAST. EXPLAINED TO HER THAT NUTRITION IS IMPORTANT FOR HEALING. PT STILL REFUSED. WILL ENCOURAGE HER TO EAT THROUGHOUT THE SHIFT.
[2018-05-31 10:05] LABS: Hematocrit 28.7 % (33.0-51.0)
--- NOTE | 2018-05-31 12:09 | NUR ---
Pt is resting in bed, she appears comfortable. Nurse, Tisha, reports that patient has been withdrawn. Spoke to son, Markos. He states that his main concern is her comfort. He is aware she is dying. He expresses regret that he didn't bring his mother in to the hospital sooner. He states that pt kept refusing to go to the hospital for a week before he finally brought her in. He did not know about the infection in her feet. Reviewed pt's multiple problems, discussed plan of care. Markos would like comfort care for his mother, with a tenative plan to take her home with him to [place]. He is also discussing placement here for her. 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 Kelly, residential child care counselor, joined planning with Markos. She will be in contact with him while plans are made to discharge with hospice, wherever that will be. Palliative Care to remain involved. Pt is not symptomatic at this time and appears restful. Markos is notifying other family members of the plan. He will remain spokesperson for the patient.
--- NOTE | 2018-05-31 12:15 | NUR ---
PT IS SLEEPING CURRENTLY, BREATHING EVEN AND EFFORTLESS @ 18RR. FAMILY HAS LEFT FOR NOW AND WILL RETURN LATER THIS EVENING. NO CHANGES FROM AM ASSESSMENT, WILL CONTINUE TO MONITOR.
--- NOTE | 2018-05-31 13:26 | NUR ---
The pt states that she is not having any pain, anxiety, discomfort, and denies any needs at this time. Her stepdaughter and granddaughter are at the bedside. Wound care was done for the open area on the plantar surface of the right foot: Appears to be a blister which broke open, the are open area measures 5 x 7 cm. Beefy red tissue noted in the wound bed, just proximal to the 8 cm area of black discoloration which begins at the toes and extends to the edge of the above mentioned wound bed. skin was cleansed with skintegrity, patted gently dry with 2x2 gauze, and covered with absorbent mepilex, secured with kerlix and MT spandage. The pt denies any pain in the foot. She states that both legs are numb from about the mid tibial area to her toes. Small amount of pink-tinged serous drainage was noted from the wound.
--- NOTE | 2018-05-31 15:44 | NUR ---
Provided supportive visit to pt's son, Markos. He is accepting of POC and tells me he is at peace with his mom's passing. He is hoping to take her home with him to [place] later this week on hospice. Luiza shrugs her shoulders when I asked her how she felt about POC. She also shrugged when I asked about pain. According to Markos, Luiza is very stoic and relcutant to accept help in any form. After establishing rapport, Luiza admitted to me she felt ready to "go" and hopes it happens quickly. She says she has no regrets and denied any concerns. She allowed me to pray for her at bedside. She is fiercly independant and a rather heavy smoker according to son. He suspects she is having a hard time withdrawing from cigarettes. Advised niccotine patches are available. I will continue to provide staff genetic counselor and prayer as schedule permits.
--- NOTE | 2018-05-31 18:00 | NUR ---
the pt reports a pain level in the epigastric area and right foot of 5/10. This is less than 8/10 which she had around 1:30 this afternoon. Medicated for pain and given ice cream which she preferred instead of her dinner tray. Son Markos and granddaughter are at the bedside.
--- NOTE | 2018-06-01 06:34 | NUR ---
SHIFT SUMMARY PATIENT VERY WITHDRAWN THROUGHOUT THE NIGHT AND MINIMALLY INTERACTIVE WITH STAFF. PATIENT VERY SLEEPY AND SLEPT MOST OF THE NIGHT, HOWEVER, PATIENT WOULD AWAKEN EASILY TO VERBAL STIMULI. PATIENT APPEARED TO REST COMFORTABLY THROUGHOUT THE NIGHT. PATIENT DID REFUSE TO BE TURNED LAST NIGHT, STATING, "NO, I'M COMFORTABLE." PATIENT DID NOT APPEAR TO BE IN ANY DISTRESS THROUGHOUT THE NIGHT. PATIENT CURRENTLY APPEARS TO BE ASLEEP AND RESTING COMFORTABLY. WILL CONTINUE TO MONITOR PATIENT AND REPORT TO ONCOMING RN.
--- NOTE | 2018-06-01 11:12 | NUR ---
The pt is declining food. She appears comfortable this morning, non anxious, and non distressed; however, she did tell me that she was having pain on her right side. She was given medication for this, and later appeared to be sleeping. She declines showering, bathing, getting out of bed. She seems to be depressed, hopeless, ambivelent and apathatic about any and all suggestions which are asked of her. She shrugs her shoulders, puts up her hands, and communicates that she doesn't care about anything. Stated that she just wants to . I expressed to her that her life has meaning, and asked about the many people who have been here to visit her, but she does not seem to care about anything at all. Her son Markos and granddaughter are here this morning. Markos told me that he was going back to [facility] today, and would return tomorrow.
--- NOTE | 2018-06-01 13:02 | NUR ---
TRANSFER FROM PCU PT ARRIVED TO ROOM VIA BED, ACCOMPANIED BY GRANDDAUGHTER, DENIES ANY PAIN OR ANY DISCOMFORT AT THIS TIME, PT IS WITHDRAWN, WAVES HANDS TO DISMISS EVERYONE IN ROOM AND DURING ASSESSMENT, CONT. TO MONITOR FOR ANY CHANGES, MEDICATE FOR PAIN PRN.
--- NOTE | 2018-06-01 14:27 | NUR ---
Spiritual care visit conducted. Patient's family (granddaughter and brother) stopped me in the hallway outside of patient's room and wanted to discuss patient. They discussed how she doesn't complain even if she is in pain, how she is not an easy patient who only answers questions she chooses to answer and how much family deeply care about her. I listened empathically, normalized their experience and explored sources of dignity of patient. Family responded well and exhibited signs of an elevated mood.
--- NOTE | 2018-06-01 17:16 | NUR ---
SUMMARY PT RESTING IN BED, FAMILY IN AND OUT OFTEN TO VISIT WITH PT, CONTINUES TO DENY ANY PAIN, REFUSES FOOD AND DRINK, AND REFUSES TO BE REPOSITIONED, NO ACUTE CHANGES THIS SHIFT.
--- NOTE | 2018-06-02 05:59 | NUR ---
PT ON COMFORT CARE AND SLEPT T/O MOST OF SHIFT. NO SIG PAIN, REMAINS WITHOUT ANY DISTRESS. DOES REFUSE REPOSITIONING, WAVES HANDS AT STAFF SHOOING THEM AWAY MOST OF THE TIME. DID TAKE SCHEDULED MEDS LAST NIGHT. CURRENTLY SLEEPING, [facility] IN PLACE. CALL LIGHT IN REACH. PLAN TO DC ON HOSPICE TO [facility] WITH SON AT SOME POINT SOON.
--- NOTE | 2018-06-02 07:20 | NUR ---
PT WAKES WITH NOISE STIMULI. DENIES PAIN. OFFERED TO REPOSITION. PT SHRUGS AND SAYS "NO THANKS". PT OFFERED BLANKETS. REFUSED. STATES SHE IS WARM ENOUGH.
--- NOTE | 2018-06-02 09:30 | NUR ---
DR BANEGAS TO ROOM FOR EVAL. PT MEDICATED WITH PO MEDS PER ORDERS. DR BANEGAS WOULD LIKE TO POSS D/C ANY UNNECESSARY MEDS. WILL DISCUSS WITH STAFF.
--- NOTE | 2018-06-02 10:43 | NUR ---
PALLIATIVE CARE STATES THAT CERTAIN ROUTINE MEDS CAN BE DC DUE TO INCONSISTENCY WITH ADMIN. PLANS TO DISCUSS WITH HOSPITALIST.
--- NOTE | 2018-06-02 11:00 | NUR ---
PT RESTING WITH EYES CLOSED. ASSUMED POSITION OF COMFORT. NADN. RESP EVEN AND NON LABORED. FRIEND CALLED TO CHECK ON PT. WANTS TO COME VISIT.
--- NOTE | 2018-06-02 11:04 | NUR ---
pt resting no s/s of airhunger. asked to review medications. minimal PO intake and decresed urin output. charis Prakash. will review Prn meds daily for nerve pain and air hunger. will work with chaplian to support family
--- NOTE | 2018-06-02 12:42 | NUR ---
PT FAMILY AT BEDSIDE. STATES THAT PT SON SHOULD BE HERE TODAY. WILL DISCUSS DC WITH HIM WHEN HE ARRIVES. PT FAMILY DENIES NEEDS. PT DENIES NEEDS. SHRUGS AND SAYS "I WANT A SHOT TO KILL ME"
--- NOTE | 2018-06-02 13:48 | NUR ---
Spiritual care visit conducted. Met with patient's family and was introduced to patient's son abdoulaye. Abdoulaye stated that his mom is sleeping quite a bit and he felt like that was a good thing. Abdoulaye said that he was hoping, for his mom's sake, that she does not linger. I provided companionship to the family and continue to remain available.
--- NOTE | 2018-06-02 14:05 | NUR ---
THAD WITH PALLIATIVE CARE SPEAKING WITH PT SON RE PLAN AND FAMILY WISHES. PT RESTING. CISCO.
--- NOTE | 2018-06-02 17:00 | NUR ---
PT EATING SOME VANILLA COOKIES. FAMILY AT BEDSIDE. DISCUSSED PT COMFORT WITH FAMILY. PLAN TO MEDICATED WITH MORPHINE.
--- NOTE | 2018-06-02 17:33 | NUR ---
PT MEDICATED WITH MORPHINE. MILK PROVIDED PER PT REQUEST.
--- NOTE | 2018-06-02 17:40 | NUR ---
420ML DAMARIS URINE EMPTIED FROM [facility].
--- NOTE | 2018-06-03 06:46 | NUR ---
SHIFT SUMMARY: NO ACUTE CHANGES OVER NIGHT. OFFERED REPOSITIONING, PAIN MEDICATION, FOOD, DRINKS, ECT. REFUSED ALL CARE. PT APPEARS TO BE IN NO DISTRESS. DENIES N/V AND PAIN. PT REPORTS "I JUST WANT TO GO TO SLEEP AND NOT WAKE UP". PT GIVEN EMOTIONAL SUPPORT PRN. RESTNG MOST OF SHIFT.
--- NOTE | 2018-06-03 16:33 | NUR ---
Mrs. Chan appears disgruntled. She shrugs her shoulders to questions and says, "Whatever" when asked about pain. She admits to not being able to rest well. When asked if she wanted some medication to help her relax, she threw her hands up and said, "Whatever." I gently explained to her that "Whatever" is an unclear answer to a basic question. Advised her to respond with 'yes or 'no'. She said she was in pain and would like something to help her relax. She tells me she is hoping she dies quickly. Met with son Markos, outside of room. He appears devoted and personable. He, too, is hoping pt passes peacefully and quickly. Assistant Art Director services will remain available.
--- NOTE | 2018-06-03 18:40 | NUR ---
SHIFT SUMMARY PT HAS SLEPT MOST OF THE SHIFT SINCE ADMINISTRATION OF ATIVAN. WHEN AWAKE PT RESPONDS TO QUESTIONS WITH ONE WORD ANSWERS. A/O. PLAN IS HOME WITH HOSPICE.
--- NOTE | 2018-06-04 04:30 | NUR ---
SHIFT SUMMARY: NO ACUTE CHANGES OVER NIGHT. PT APPEARS TO BE COMFORTABLE. OFFERED TO BE REPOSITIONED SEVERAL TIMES. PT REFUSES ALL CARE. GIVEN ATROPINE ONCE. SLEPT T/O SHIFT. PLAN IS FOR HOME HOSPICE.
--- NOTE | 2018-06-04 10:53 | NUR ---
FAMILY IN TO TAKE PT BELONGING BAGS HOME AND WASH PATIENT'S CLOTHES. PT CONSENT TO FAMILY TAKING BELONGINGS.
--- NOTE | 2018-06-04 11:12 | NUR ---
met tiwh son briefly this AM. pt sleeping no s/s of pain respirations more even. son to meet with lawn care worker for plan.
--- NOTE | 2018-06-04 17:50 | NUR ---
met with son asked me to come look at patient. she is showing some signs of prgression and slight increase in labored respirations. nursing gave prn meds. pt took her wig off and dentures out and aloowed nurse to give more oral care. plan if for family to come visit tomorrow and then DC to sons home for care. review with case managment on progression will see how wspriscilla is doing before transfer. goal is to get her home and to see family. Son is very reasonable about care and plan. He is stressed about her tolerating transfer.
--- NOTE | 2018-06-04 17:52 | NUR ---
SUMMARY PT HAS BEEN RESTING COMFORTABLY. PAIN EDS GIVEN PRN, ORAL CARE AND REPOSITIONING DONE. PT CONTINUES TO REFUSE CARE WHEN ASKED BUT IS THANKFUL AFTER RECIEVING IT. HER SON SAT AT THE BEDSIDE FOR AWHILE TODAY. HE IS MAKING PLANS FOR HER TO BE D/C TO HIS HOME ON THURSDAY WITH HOSPICE CARE. CALL LIGHT IN REACH.
--- NOTE | 2018-06-04 19:20 | NUR ---
PT APPEARS COMFORTABLE AT REST, SLEEPING IN BED. NO FAMILY PRESENT. RISHI PATENT.
--- NOTE | 2018-06-04 20:40 | NUR ---
PT REFUSED PM LYRICA. SECRETIONS PRESENT BUT REFUSED ATROPINE. PT RESTING AT THIS TIME.
--- NOTE | 2018-06-04 21:39 | NUR ---
FOUND A LYRICA IN PT'S BED, LIKELY 0900 DOSE. DID NOT APPEAR IN [facility] AVAILABLE TO DOCUMENT THE WASTE. WASTED PER PROTOCOL WITH ESME SETHI.
--- NOTE | 2018-06-05 00:37 | NUR ---
PT APPEARS TO BE SLEEPING COMFORTABLY AT THIS TIME.
--- NOTE | 2018-06-05 02:20 | NUR ---
PT APPEARS TO BE RESTING COMFORTABLY IN BED, EYES CLOSED, SNORING SOFTLY.
--- NOTE | 2018-06-05 04:00 | NUR ---
PT SLEEPING. UPON WAKING FOR REPOSITIONING, SHE DENIES PAIN OR NEEDS. PERFORMED DINA CARE AND ORAL CARE. PT FELL ASLEEP QUICKLY AFTER POSITIONING.
--- NOTE | 2018-06-05 06:12 | NUR ---
PT REMAINS COMFORTABLE AT REST. RESPIRATIONS UNLABORED. NO ACUTE CHANGES.
--- NOTE | 2018-06-05 17:03 | NUR ---
Multiple visits today with patient and family. They are ready to go home but agonizing over the process of transposrt. met with pt late today she was more alert and comfortable. She had many visitors. symptom review she feels much more comfortable in her breathing denies much pain. Reviewed with her the medications for helpin her respitory stress. She is willing to go home with son. Reviewed with her that its a long ride she feels she can do it and wants to go. So was at bedside during conversation. Gave son a stocking cap and fleece blanket for the ride.
--- NOTE | 2018-06-05 17:44 | NUR ---
SUMMARY NO ACUTE CHANGES T/O SHIFT. MEDICATED ONCE DURING SHIFT FOR 10/06 PAIN. PT DECLINED ATROPINE FOR SECRETIONS. SLEEPING AT THIS TIME. SON AT BEDSIDE. CALL LIGHT IN REACH.
--- NOTE | 2018-06-05 21:44 | NUR ---
PT APPEARS COMFORTABLE AT THIS TIME. RESTING WITH EYES CLOSED.
--- NOTE | 2018-06-05 21:45 | NUR ---
PT CHANGED AND REPOSITIONED, OFFERED PAIN MEDS AND HER SCHEDULED LYRICA, PT REFUSED. APPEARS GENERALLY COMFORTABLE AT REST. WILL CTM.
--- NOTE | 2018-06-05 23:55 | NUR ---
PT REFUSED ATROPINE AT THIS TIME THOUGH SHE HAS SECRETIONS AUDIBLE WITH COUGHING. COCCYX DRESSING PLACED, PT WAS BEGINNING TO HAVE REDNESS.
--- NOTE | 2018-06-06 01:52 | NUR ---
PT RESTING COMFORTABLY AT THIS TIME
--- NOTE | 2018-06-06 03:40 | NUR ---
PT RESTING IN BED WITH EYES CLOSED. NO NEEDS AT THIS TIME.
--- NOTE | 2018-06-06 05:43 | NUR ---
PT RESTING COMFORTABLY, REPOSITIONED, OFFERED FLUIDS.
--- NOTE | 2018-06-06 05:58 | NUR ---
PT UNCOMFORTABLE FOLLOWING REPOSITIONING, REPOSITIONED AGAIN, MEDICATED FOR PAIN AT THIS TIME
--- NOTE | 2018-06-06 08:08 | NUR ---
[facility] COMFORT CARE VISIT: MET WITH FAMILY AND REVIEWED STATUS, MEDS AND PLANS FOR DC WITH PT'S RN. ASSESSED PT FOR COMFORT. SHE IS SOUND ASLEEP AND DID NOT WAKE TO VERBAL STIMULI. I DID NOT ATTEMPT TO WAKE HER. PT WITH EVEN RESPIRATIONS. PT SUPINE WITH HOB ELEVATED. LIGHT SNORING NOTED BUT NO RESPIRATORY DISTRESS. PT HAS MOD DK YELLOW URINE OUTPUT IN [place] [facility] BAG PLANS ARE IN PLACE FOR TRANSPORT TO [facility] TO SON'S HOME WITH SAME DAY HOSPICE ADMIT THERE ALSO. PT TO BE MEDICATED FOR PAIN PRIOR TO D/C FOR THREE HOUR TRANSPORT. REVIEWED ALL OF ABOVE WITH FAMILY AND THEY CONFIRM DECISION TO PROCEED WITH D/C AND TRANSPORT TODAY PLANNED.
--- NOTE | 2018-06-06 08:17 | NUR ---
pt declined being repositioned at this time
--- NOTE | 2018-06-06 10:18 | NUR ---
TRANSPORT CANCELLED DUE TO WEATHER CONDITIONS IN [facility] PT'S SON SPOKE TO DR BANEGAS REGARDING THIS. TRANSPORT CANCELLED. CALLED [facility] AND NOTIFIED THAT TRANSPORT CANCELLED FOR TODAY. LM FOR PALLIATIVE CARE RN.
--- NOTE | 2018-06-06 17:20 | NUR ---
SUMMARY NO ACUTE CHANGES T/O SHIFT. PT REPOSITIONED T/O SHIFT. DENIED NEED FOR PAIN MEDS. DECLINED MEDS FOR SECRETIONS. SON IN AND OUT. TRANSPORT DELAYED UNTIL TOMORROW DUE TO POOR DRIVING CONDITIONS TO [place].
--- NOTE | 2018-06-06 20:12 | NUR ---
ATTEMPTED TO GIVE PT HER LYRICA BUT SHE WOULD NOT SWALLOW ANY WATER WITH IT. MOISTENED HER MOUTH WITH SWABS. REPOSITIONED. PT WINCED WITH MOVEMENT BUT REFUSED PAIN MEDICATION. SLEEPS EASILY BETWEEN CARES. PT STILL HAS AUDIBLE SECRETIONS BUT WILL NOT ALLOW ATROPINE.
--- NOTE | 2018-06-06 22:00 | NUR ---
PT APPEARS COMFORTABLE AT THIS TIME. RESTING WITH EYES CLOSED.
--- NOTE | 2018-06-06 23:59 | NUR ---
PT SLEEPING AT THIS TIME. NO ACUTE CHANGES.
--- NOTE | 2018-06-07 01:28 | NUR ---
PT APPEARS PAINFUL WITH MOVEMENT, MEDICATED PER EMAR. SHE CONTINUES TO HAVE SECRETIONS IN HER THROAT. REPOSITIONED FOR COMFORT.
--- NOTE | 2018-06-07 02:57 | NUR ---
PT DENIES NEED FOR PAIN MEDS. REPOSITIONED.
--- NOTE | 2018-06-07 04:53 | NUR ---
PT APPEARS TO BE RESTING COMFORTABLY AT THIS TIME
--- NOTE | 2018-06-07 13:30 | NUR ---
DISCHARGE SUMMARY PT LEFT VIA TRANSPORT WITH SON AND GD TO FOLLOW HOME TO [place] [facility] [place] ON HOSPICE. SON TOOK ALL PERSONAL ITEMS INCLUDING GLASSES, TAVARES, ORIGINAL AND 2 COPIES OF POLST, REP RECEIVED SCRIPTS 06/06 AND ALREADY HAD THOSE FILLED AND REP THAT HOSPICE IS TO START TOMORROW. 2 DEA LLAMAS'Melinda.
--- NOTE | 2018-06-07 13:35 | NUR ---
Spiritual care visit conducted. I contacted rose maryjovana Tamia and son Markos in the hallway outside patient's room. They stated that patient was being discharged today. I listened empathically, encouraged self-care and normalized their expeirnce. They thanked me for the care and time I have invested in the family.
== END 2018-06-07 13:41 | disposition hospice, home (50) | DRG 854 ==
LOC: ER 11:57 → ICUW 17:51 → PCU 17:51 → SURS 17:51 → ERHOLD 17:51 → SURS 05-26 12:04 → PCU 05-26 12:20 → ICUW 05-27 15:46 → PCU 05-29 18:48 → SURS 06-01 11:47
PROVIDERS: Emergency Medicine; Family Medicine; Physician Assistant; Radiology Diagnostic Radiology; ADMIT Internal Medicine
PROC: 047D3DZ Dilation of Left Common Iliac Artery with Intraluminal Device, Percutaneous Approach (ICD-10-PCS; principal; 2018-05-28)
PROC: 047C3DZ Dilation of Right Common Iliac Artery with Intraluminal Device, Percutaneous Approach (ICD-10-PCS; 2018-05-28)
PROC: 3E05317 Introduction of Other Thrombolytic into Peripheral Artery, Percutaneous Approach (ICD-10-PCS; 2018-05-28)
PROC: B41D1ZZ Fluoroscopy of Aorta and Bilateral Lower Extremity Arteries using Low Osmolar Contrast (ICD-10-PCS; 2018-05-28)
DX: A41.52 Sepsis due to Pseudomonas (principal); I96 Gangrene, not elsewhere classified; N39.0 Urinary tract infection, site not specified; J90 Pleural effusion, not elsewhere classified; J98.11 Atelectasis; R64 Cachexia; Z68.1 Body mass index [BMI] 19.9 or less, adult; E44.0 Moderate protein-calorie malnutrition; E78.5 Hyperlipidemia, unspecified; Z85.038 Personal history of other malignant neoplasm of large intestine; Z51.5 Encounter for palliative care; Z79.82 Long term (current) use of aspirin; I48.91 Unspecified atrial fibrillation; Z66 Do not resuscitate; Z85.118 Personal history of other malignant neoplasm of bronchus and lung; E86.0 Dehydration; F10.20 Alcohol dependence, uncomplicated; F32.9 Major depressive disorder, single episode, unspecified; M79.2 Neuralgia and neuritis, unspecified; Z85.89 Personal history of malignant neoplasm of other organs and systems; Z90.2 Acquired absence of lung [part of]; Z92.3 Personal history of irradiation; G89.29 Other chronic pain; Z90.49 Acquired absence of other specified parts of digestive tract; Z91.81 History of falling; R62.7 Adult failure to thrive; G30.9 Alzheimer's disease, unspecified; F02.80 Dementia in other diseases classified elsewhere, unspecified severity, without behavioral disturbance, psychotic disturbance, mood disturbance, and anxiety
CPT/HCPCS: 36415; 37211; 37214; 37221; 37228; 51702; 71045; 71250; 73620; 75625; 75716; 75774; 80048; 80053; 80061; 80069; 81001; 82550; 82553; 83605; 85014; 85018; 85025; 85384; 85730; 87040; 87077; 87086; 87186; 87804; 93005; 93010; 93306; 93925; 94640; 94667; 94668; 94760; 96372-59; 96374; 99152; 99153; 99285-25; A9270-GY; C1725; C1760; C1769; C1876; C1887; C1894; J0696; J1644; J1650; J1940; J2250; J2405; J2997; J3010; J7030; J7040; J7050; J7060; P9612; Q9967